=== PATIENT | male | born 1965 | race Caucasian/White ===

== ENCOUNTER 2018-04-22 14:24 | Emergency (ER) | payer MEDICAID ==
[~2018-04-22] VITALS: Ht 195.6 cm; Wt 82.8 kg
[2018-04-22 14:34] VITALS: BP 168/113
[2018-04-22] MEDS ORDERED: PHENYTOIN (15:54)
[2018-04-22] MEDS ORDERED: SIMVASTATIN (15:54)
[2018-04-22] MEDS ORDERED: ASPI-496 PO (15:54)
[2018-04-22] MEDS ORDERED: METOPROLOL (15:54)
[2018-04-22] MEDS ORDERED: ABILIFY (15:54)
[2018-04-22] MEDS ORDERED: AMLODIPINE (15:54)
== END 2018-04-22 16:03 | disposition home or self-care (01) ==
LOC: ED 15:00
DX: I10 Essential (primary) hypertension (principal); E78.5 Hyperlipidemia, unspecified; Z00.00 Encounter for general adult medical examination without abnormal findings; Z91.19 Patient's noncompliance with other medical treatment and regimen
CPT/HCPCS: 99281